=== PATIENT | male | born 1955 | race Caucasian/White ===

== ENCOUNTER → 2018-03-22 | Outpatient (CLI) | payer OTHER, MEDICAID | LOC: FIMAGING 09:12 | PROVIDERS: ATTEND Family Medicine | DX: M48.07 Spinal stenosis, lumbosacral region (principal); M51.37 Other intervertebral disc degeneration, lumbosacral region; M51.36 Other intervertebral disc degeneration, lumbar region; M51.34 Other intervertebral disc degeneration, thoracic region; M46.96 Unspecified inflammatory spondylopathy, lumbar region ==